=== PATIENT | female | born 1975 | race American Indian/Alaskan Native ===

== ENCOUNTER 2017-03-09 16:16 | Emergency (ER) | payer OTHER ==
[2017-03-09 17:11] LABS: Basophils % (Auto) 0.8 % (0.0-1.8); Eosinophils % (Auto) 3.5 % (0.0-4.3); Hematocrit 38.7 % (30.3-42.9); Hemoglobin 12.6 gm/dl (10.1-14.3); Mean Corpuscular HGB Conc 32 % (30-34); Mean Corpuscular Hemoglobin 31 pg (28-32); Mean Corpuscular Volume 96 fl (79-97); Platelet Count 356 K/mm3 (140-440); Red Blood Count 4.03 M/mm3 (3.65-5.03); Red Cell Distribution Width 14.5 % (13.2-15.2); White Blood Count 8.5 K/mm3 (4.5-11.0)
[2017-03-09 17:13] LABS: Anion Gap 16 mmol/L; Blood Urea Nitrogen 12 mg/dL (7-17); Calcium 8.8 mg/dL (8.4-10.2); Carbon Dioxide 25 mmol/L (22-30); Chloride 102.5 mmol/L (98-107); Glucose 96 mg/dL (65-100); Potassium 3.5 mmol/L (3.6-5.0); Sodium 140 mmol/L (137-145)
[2017-03-09] MEDS ORDERED: CATAPRES PO ONE (20:33)
--- NOTE | 2017-03-09 21:46 | Cat Scan Report ---
FINAL REPORT PROCEDURE: CT HEAD/BRAIN WO CON TECHNIQUE: Computerized tomography of the head was performed without contrast material. HISTORY: weakness COMPARISON: No prior studies are available for comparison. FINDINGS: Skull and scalp: Normal. Paranasal sinuses: Normal. Ventricles and subarachnoid spaces: Normal. Cerebrum: No evidence of hemorrhage, acute infarction or mass . Cerebellum and brainstem: No evidence of hemorrhage, acute infarction or mass. Vasculature: Normal. Comments: None. IMPRESSION: Normal Examination
[2017-03-09] MEDS ORDERED: APRESOLINE IV ONE (22:39)
--- NOTE | 2017-03-09 22:47 | Emergency Department Report ---
HPI - General Chief Complaint: Neuro Symptoms/Deficit Time Seen by Provider: 03/09/17 20:33 - HPI HPI: 41-year-old -[place] female presents to the ED with headache, right arm numbness right leg numbness. Patient denies any alleviating or exacerbating factors. Patient with a long standing history of blood pressure but has not been compliant with her medication. Patient denied any fever or neck pain. Patient describes headache as sharp, bilateral frontal area, no modifying factors. Symptoms, come and go.. ED Past Medical Hx - Past Medical History Previous Medical History?: Yes Hx Hypertension: Yes Hx Headaches / Migraines: Yes - Surgical History Past Surgical History?: Yes Additional Surgical History: Ventral hernia repair - Family History Family history: hypertension - Social History Smoking Status: Never Smoker Substance Use Type: None - Medications Home Medications: Home Medications Medication Instructions Recorded Confirmed Last Taken Type Gabapentin [Neurontin] 100 mg PO Q8HR #90 capsule 03/09/17 Unknown Rx cloNIDine [Catapres] 0.1 mg PO BID #60 tablet 03/09/17 Unknown Rx ED Review of Systems ROS: Stated complaint: RT SIDE ARM/LEG/SHOULDER NUMBNESS Other details as noted in HPI Comment: All other systems reviewed and negative Constitutional: no symptoms reported Endocrine: no symptoms reported Neurological: headache, weakness, paresthesias Physical Exam - Physical Exam Vital Signs: Vital Signs 03/09/17 03/09/17 03/09/17 16:25 18:40 20:00 Temperature 98.2 F 98.0 F Pulse Rate 100 H 67 98 H Respiratory 18 18 98 H Rate Blood Pressure 150/101 Blood Pressure 157/108 169/106 [Left] O2 Sat by Pulse 100 100 99 Oximetry 03/09/17 03/09/17 03/09/17 20:02 20:21 21:38 Temperature 97 F L 98.2 F Pulse Rate 78 100 H Respiratory 18 18 Rate Blood Pressure 179/110 160/116 Blood Pressure [Left] O2 Sat by Pulse 100 99 99 Oximetry 03/09/17 21:53 Temperature Pulse Rate Respiratory Rate Blood Pressure 160/116 Blood Pressure [Left] O2 Sat by Pulse Oximetry Physical Exam: - Physical Exam - General Limitations: No Limitations General appearance: alert, in no apparent distress, obese - Head Head exam: Present: atraumatic, normocephalic - Eye Eye exam: Present: normal appearance - ENT ENT exam: Present: mucous membranes moist - Neck Neck exam: Present: normal inspection - Respiratory Respiratory exam: Present: normal lung sounds bilaterally. Absent: respiratory distress - Cardiovascular Cardiovascular Exam: Present: normal rhythm, rate absent: systolic murmur, diastolic murmur, rubs, gallop - GI/Abdominal GI/Abdominal exam: Present: soft, normal bowel sounds - Extremities Exam Extremities exam: Present: normal inspection - Back Exam Back exam: Present: normal inspection - Neurological Exam Neurological exam: Present: alert, oriented X3 - Psychiatric Psychiatric exam: normal affect and mood - Skin Skin exam: Present: warm, dry, intact, normal color. Absent: rash ED Course Vital Signs 03/09/17 03/09/17 03/09/17 16:25 18:40 20:00 Temperature 98.2 F 98.0 F Pulse Rate 100 H 67 98 H Respiratory 18 18 98 H Rate Blood Pressure 150/101 Blood Pressure 157/108 169/106 [Left] O2 Sat by Pulse 100 100 99 Oximetry 03/09/17 03/09/17 03/09/17 20:02 20:21 21:38 Temperature 97 F L 98.2 F Pulse Rate 78 100 H Respiratory 18 18 Rate Blood Pressure 179/110 160/116 Blood Pressure [Left] O2 Sat by Pulse 100 99 99 Oximetry 03/09/17 21:53 Temperature Pulse Rate Respiratory Rate Blood Pressure 160/116 Blood Pressure [Left] O2 Sat by Pulse Oximetry ED Medical Decision Making - Lab Data Result diagrams: 03/09/17 16:45 03/09/17 16:45 Critical care attestation.: If time is entered above; I have spent that time in minutes in the direct care of this critically ill patient, excluding procedure time. ED Disposition Clinical Impression: Labile blood pressure, Paresthesia and pain of both upper extremities Disposition: DC-01 TO HOME OR SELFCARE Is pt being admited?: No Does the pt Need Aspirin: No Condition: Stable Instructions: Hypertension (ED), Paresthesia (ED) Prescriptions: cloNIDine [Catapres] 0.1 mg PO BID #60 tablet Gabapentin [Neurontin] 100 mg PO Q8HR #90 capsule Referrals: PRIMARY CARE, [Primary Care Provider] - 3-5 Days
[2017-03-09 22:50] VITALS: BP 159/84
== END 2017-03-09 23:01 | disposition home or self-care (01) ==
LOC: ED 16:16
DX: I10 Essential (primary) hypertension (principal); R20.9 Unspecified disturbances of skin sensation; G43.909 Migraine, unspecified, not intractable, without status migrainosus
CPT/HCPCS: 36415; 70450; 80048; 85025; 99284